=== PATIENT | male | born 1990 | race Hispanic/Latino ===

== ENCOUNTER 2019-06-01 06:48 | Day surgery (SDC) | payer OTHER ==
--- NOTE | 2019-05-31 14:38 | HP ---
HISTORY OF PRESENT ILLNESS: Anirudh is a 28-year-old male patient, who does pest control, has right inguinal hernia for the past 4 years. He wears a belt for. It is becoming increasingly bothersome to him, and he desires repair. Plan is robot mesh repair as an outpatient. He understands risks of infection, bleeding, reoperation, ALLERGIES: NONE. SOCIAL HISTORY: Tobacco, rarely. Alcohol, rarely. PAST SURGICAL HISTORY: Noncontributory. PAST MEDICAL HISTORY: Noncontributory. REVIEW OF SYSTEMS: Noncontributory. PHYSICAL EXAMINATION: VITAL SIGNS: pounds, 61 inches, . HEAD, EYES, EARS, NOSE, AND THROAT: Unremarkable. LUNGS: Clear to auscultation. CARDIAC: Regular rate and rhythm without murmur or gallop. ABDOMEN: Soft and nontender. Right inguinal hernia on standing. Testicles normal. Left groin without evident hernia. EXTREMITIES: Unremarkable. ASSESSMENT AND PLAN: Symptomatic right inguinal hernia. PLAN: Robot mesh repair as outpatient. He understands risks and benefits and consents. Job ID: [id number]
[2019-05-31 16:10] VITALS: BMI 21.7
[2019-06-01] MEDS ORDERED: Lidocaine 1% w/Epinephrine 1:100K 20 ML VIAL ONE (06:57)
[2019-06-01] MEDS ORDERED: Bupivacaine PF 0.5% 30 ML VIAL ONE (06:57)
[2019-06-01 07:09] LABS: #Basophils 0.1 thou/uL (0.0-0.2); #Eosinphils 0.2 thou/uL (0.0-0.7); #Lymphocytes 2.2 thou/uL (1.20-3.40); #Monocytes 0.6 thou/uL (0.11-0.59); #Neutrophils 3.7 thou/uL (1.40-6.50); %Basophils 1.8 % (0.0-1.0); %Eosinophils 3.4 % (0.0-10.0); %Monocytes 8.1 % (0.0-10.0); %Neutrophils 54.7 % (42.0-75.0); Mean Corpuscular HGB CONC 34.2 g/dL (32.0-36.0); Mean Corpuscular Hemoglobin 30.9 pg (27.0-31.0); Mean Corpuscular Volume 90.3 fL (78.0-98.0); Mean Platelet Volume 7.5 fL (7.4-10.4); Platelet Count 198 thou/uL (130-400); RBC Distribution Width 11.6 % (11.5-14.5); Red Blood Cell (RBC) Count 5.52 mill/uL (4.70-6.10); White Blood Cell (WBC) Count 6.8 thou/uL (4.8-10.8)
[2019-06-01] MEDS ORDERED: Acetaminophen 500 MG TAB ONE (07:11)
[2019-06-01] MEDS ORDERED: Ketorolac Tromethamine 30 MG/ML VIAL ONE (07:11)
[2019-06-01] MEDS ORDERED: Gabapentin 300 MG CAP ONE (07:11)
[2019-06-01] MEDS ORDERED: Fentanyl 100 MCG/2 ML VIAL ONE (07:17)
[2019-06-01] MEDS ORDERED: Lidocaine 2% Jelly 5 ML TUBE ONE (07:17)
[2019-06-01 07:21] LABS: Anion Gap 11 mmol/L (10-20); BUN (Urea Nitrogen) 12 mg/dL (8.9-20.6); Calc. Creatinine Clearance 131 mL/min (70-130); Calcium 9.4 mg/dL (7.8-10.44); Carbon Dioxide 26 mmol/L (22-29); Chloride 106 mmol/L (98-107); Estimated GFR-MDRD Greater than 90; Glucose 94 mg/dL (70-105); Potassium 3.8 mmol/L (3.5-5.1); Sodium 139 mmol/L (136-145)
[2019-06-01] MEDS ORDERED: Midazolam HCl 2 mg/2 ml Vial ONE (07:51)
[2019-06-01] MEDS ORDERED: PROPOFOL 200 MG/20 ML VIAL ONE (10:32)
[2019-06-01] MEDS ORDERED: Dexamethasone 20 MG/5 ML VIAL ONE (10:32)
[2019-06-01] MEDS ORDERED: Glycopyrrolate 0.2 MG/ML 5 ML SYRINGE ONE (10:32)
[2019-06-01] MEDS ORDERED: Rocuronium Bromide 10 MG/ML (10ML VIAL) ONE (10:32)
[2019-06-01] MEDS ORDERED: Ondansetron PF 4 MG/2 ML Vial ONE (10:32)
[2019-06-01] MEDS ORDERED: Lidocaine 1% PF 5 ML VIAL ONE (10:32)
--- NOTE | 2019-06-01 11:11 | OP ---
DATE OF PROCEDURE: 06/01/2019 PREOPERATIVE DIAGNOSIS: Right inguinal hernia. POSTOPERATIVE DIAGNOSIS: Right inguinal hernia. PROCEDURE PERFORMED: Robot laparoscopic 3D Bard Max large repair of indirect right inguinal hernia. ANESTHESIA: General and local with 0.5% Marcaine 30 mL mixed with 1% Xylocaine with epinephrine 20 mL. FINDINGS: Large right inguinal hernia. No left inguinal hernia. DESCRIPTION OF PROCEDURE: The patient was taken to the operating room, where under general anesthesia, Izquierdo catheter was placed at the beginning of the procedure and removed at the end. Abdomen was prepared with ChloraPrep and draped in routine fashion. Local anesthetic was infiltrated in the skin and subcutaneous tissue about the operative site. Left paramedian supraumbilical incision was made. Pneumoperitoneum to 15 mmHg was obtained with a Veress needle, replaced it with an 11 balloon port and laparoscope introduced and bilateral far lateral incision was made above the umbilical level near the anterior axillary lines and 8-mm port was placed. Robot docked and positioned, and right inguinal hernia repair undertaken. Left groin without hernia. Peritoneum dissected free on the right side from the midline laterally to the anterior superior iliac spine. Dissecting the flap of peritoneum down, I visualized the Roger's ligament medially and dissecting out laterally and then dissecting the peritoneum from the cord structures using careful dissection using the robot using cautery for hemostasis. Once adequate pocket had been developed, the 3D Bard Max large mesh was positioned properly and secured to Roger's ligament with 2-0 Vicryl and to the anterior abdominal wall to the right lateral anterior portion using 2-0 Vicryl suture. Once mesh was probably positioned, the peritoneal flap closed with continuous suture of #3-0 V-Loc suture. Good hemostasis and repair appreciated. Pneumoperitoneum was evacuated and all instruments were removed and the anterior rectus fascia to the left to midline above the umbilicus was closed with [id number] suture of 0 Vicryl UR needle. Skin and subcutaneous tissues were approximated with interrupted subdermal 4-0 Monocryl and [place] glue applied. The patient tolerated the procedure well. Job ID: [id number]
== END 2019-06-01 12:45 | disposition home or self-care (01) ==
LOC: SDC 06:48
PROVIDERS: ATTEND Specialist
PROC: 0YU54JZ Supplement Right Inguinal Region with Synthetic Substitute, Percutaneous Endoscopic Approach (ICD-10-PCS; principal; 2019-06-01)
DX: K40.90 Unilateral inguinal hernia, without obstruction or gangrene, not specified as recurrent (principal); Z91.018 Allergy to other foods
CPT/HCPCS: 36415; 80048; 85025; C1781; J0690; J1100; J1885; J2001; J2250; J2405; J2704; J3010; S0020

== ENCOUNTER 2019-07-01 11:45 | Day surgery (SDC) | payer OTHER ==
[2019-06-30 16:25] VITALS: BMI 19.8
--- NOTE | 2019-07-01 07:22 | HP ---
HISTORY OF PRESENT ILLNESS: Anirudh Rinaldi is a 28-year-old male underwent a robot laparoscopic mesh repair right inguinal hernia on 06/01/2019. He did well, followed directions postoperatively. 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 He has had recurrent bulges that he reduces. He missed work yesterday because of this. Initially, he reported and followed up to the office on 06/16/2019 and noted a small bulge that was reducible, that seemed to resolve. We thought it was a fluid collection, but now on exam, he feels a recurrent hernia on standing Valsalva. Plan is to repair that in an open fashion in the next day or next week. He understands risks and benefits, consents. We will plan use of mesh. He will avoid lifting over 25 pounds one week postop and resume activity as tolerated after that. ALLERGIES: MEDICAL, NONE. SOCIAL HISTORY: Tobacco, rarely. Alcohol, rarely. PAST SURGICAL HISTORY: Noncontributory except for the hernia repair as described. PAST MEDICAL HISTORY: Noncontributory. REVIEW OF SYSTEMS: Noncontributory. PHYSICAL EXAMINATION: VITAL SIGNS: 150 pounds and 73 inches. 119/71, 65, and 98.6 degrees. LUNGS: Clear to auscultation. CARDIAC: Regular rate and rhythm without murmur or gallop. ABDOMEN: Soft and nontender. Right groin standing reveals the testicle dilated normal. Left groin without hernia. Right groin hernia on Valsalva, reducible. ASSESSMENT: Recurrent right inguinal hernia, one month after robot mesh repair right inguinal hernia. PLAN: Open right mesh repair as outpatient. He understands risks and benefits, consents. Job ID: [id number]
[~2019-07-01 11:45] MED LIST: EPHEDRINE 25 MG/5 ML SYRINGE ONE; Glycopyrrolate 0.2 MG/ML 5 ML SYRINGE ONE; Lidocaine 1% PF 5 ML VIAL ONE; Ondansetron PF 4 MG/2 ML Vial ONE; PHENYLEPHRINE-NS 100 MCG/ML 10 ML SYRINGE ONE; PROPOFOL 200 MG/20 ML VIAL ONE
[2019-07-01] MEDS ORDERED: Ketorolac Tromethamine 30 MG/ML VIAL ONE (12:54)
[2019-07-01] MEDS ORDERED: Acetaminophen 500 MG TAB ONE (12:54)
[2019-07-01] MEDS ORDERED: Midazolam HCl 2 mg/2 ml Vial ONE (13:51)
[2019-07-01] MEDS ORDERED: Lidocaine 1% w/Epinephrine 1:100K 20 ML VIAL ONE (15:19)
[2019-07-01] MEDS ORDERED: Bupivacaine PF 0.5% 30 ML VIAL ONE (15:19)
[2019-07-01] MEDS ORDERED: Fentanyl 100 MCG/2 ML VIAL ONE (15:21)
--- NOTE | 2019-07-01 23:56 | OP ---
DATE OF PROCEDURE: 07/01/2019 PREOPERATIVE DIAGNOSIS: Recurrent right inguinal hernia after robotic mesh repair of inguinal hernia 4 weeks ago. POSTOPERATIVE DIAGNOSIS: Recurrent right inguinal hernia after robotic mesh repair of inguinal hernia 4 weeks ago. PROCEDURE PERFORMED: Prolene Hernia System mesh repair of recurrent right inguinal hernia. ANESTHESIA: General, local 0.5% Marcaine, 30 mL mixed with 1% Xylocaine with epinephrine 20 mL. DESCRIPTION OF PROCEDURE: The patient was taken to the operating room, where under general anesthesia in supine position, abdomen was prepared with ChloraPrep and draped in routine fashion. Local anesthetic was infiltrated in the skin and subcutaneous tissue about the operative site. Incision was made in the right groin, carried down transversely to the skin and subcutaneous tissue. External oblique was incised in the direction of its fibers to external ring. Cord structures dissected free. Cremasteric fibers were taken down. Hernia sac was identified, dissected free, opened under direct visualization, ligated with 0 Nurolon pursestring suture. Excision of hernia sac performed. The stump of the hernia sac underlay PHS mesh secured with 0 Nurolon suture and underlay placed through the internal ring. [place] portion placed in the floor of the inguinal canal, placed extended portion superiorly. The slit made in the mesh laterally to accommodate the cord structures and a synthetic internal ring fabricated securing the mesh laterally to the cord structures to Poupart ligament with 0 Nurolon suture. Mesh secured to Poupart ligament more inferiorly with 0 Nurolon suture and mesh folded and secured to Roger ligament with 0 Nurolon suture. The mesh had a good line and lay flat. External oblique closed with continuous suture of 3-0 Monocryl, Camper's fascia with 3-0 Monocryl, skin with subdermal 4-0 Monocryl and [place] glue applied after local anesthetic was infiltrated in the space of the inguinal canal, space above and below Camper's fascia and infiltrated skin and subcutaneous tissue. Job ID: [id number]
== END 2019-07-01 19:05 | disposition home or self-care (01) ==
LOC: SDC 11:45
PROVIDERS: ATTEND Specialist
PROC: 0YU54JZ Supplement Right Inguinal Region with Synthetic Substitute, Percutaneous Endoscopic Approach (ICD-10-PCS; principal; 2019-07-01)
DX: K40.91 Unilateral inguinal hernia, without obstruction or gangrene, recurrent (principal); Z91.018 Allergy to other foods
CPT/HCPCS: C1781; J0690; J1885; J2250; J3010; S0020

== ENCOUNTER 2023-04-01 08:09 | Outpatient (CLI) | payer BC ==
[2023-04-01 10:19] LABS: #Eosinphils 0.2 10x3/uL (0.0-0.5); #Monocytes 0.4 10x3/uL (0.0-1.1); #Neutrophils 3.8 10x3/uL (1.5-8.4); %Basophils 0.5 % (0.0-2.0); %Eosinophils 2.6 % (0.0-6.0); %Neutrophils 62.6 % (40.0-75.0); Hematocrit 47.6 % (38.8-50.0); Hemoglobin 15.9 g/dL (13.5-17.5); Mean Corpuscular HGB CONC 33.4 g/dL (32.0-36.0); Mean Corpuscular Hemoglobin 29.6 pg (27.0-33.0); Mean Corpuscular Volume 88.6 fl (81.2-95.1); Mean Platelet Volume 10.3 fl (7.4-10.4); Platelet Count 223 10x3/uL (150-450); RBC Distribution Width 12.9 % (11.5-14.5); Red Blood Cell (RBC) Count 5.37 10x6/uL (4.32-5.72)
[2023-04-01 10:29] LABS: ALT (SGPT) 12 U/L (8-55); AST (SGOT) 15 U/L (5-34); Albumin 4.3 g/dL (3.5-5.0); Alkaline Phosphatase 46 U/L (40-110); Anion Gap 14 mmol/L (10-20); BUN (Urea Nitrogen) 12 mg/dL (8.9-20.6); Bilirubin, Total 0.9 mg/dL (0.2-1.2); Calc. Creatinine Clearance 0 mL/min (70-130); Calcium 9.5 mg/dL (7.8-10.44); Carbon Dioxide 26 mmol/L (22-29); Chloride 103 mmol/L (98-107); Estimated GFR 105; Globulin 2.5 g/dL (2.4-3.5); Glucose 86 mg/dL (70-105); Potassium 4.3 mmol/L (3.5-5.1); Protein, Total 6.8 g/dL (6.0-8.3); Sodium 139 mmol/L (136-145)
== END 2023-04-01 08:10 | disposition home or self-care (01) ==
LOC: LABBT 08:09
PROVIDERS: ATTEND Surgery
DX: Z01.812 Encounter for preprocedural laboratory examination (principal); R59.1 Generalized enlarged lymph nodes
CPT/HCPCS: 80053; 85025

== ENCOUNTER 2023-04-03 11:33 | Day surgery (SDC) | payer BC ==
[2023-04-01 08:38] VITALS: BMI 22.1
[2023-04-03] MEDS ORDERED: CEFAZOLIN 2 GM VIAL ONE (11:51)
[2023-04-03] MEDS ORDERED: Lidocaine 1% MPF 2 ML VIAL ONE (11:51)
[2023-04-03] MEDS ORDERED: Sodium Chloride 0.9% 100 ML ONE (11:51)
[2023-04-03] MEDS ORDERED: EPINEPHrine 1 MG/ML VIAL ONE (14:01)
[2023-04-03] MEDS ORDERED: Bupivacaine PF 0.5% 30 ML VIAL ONE (14:02)
[2023-04-03] MEDS ORDERED: Ondansetron PF 4 MG/2 ML Vial ONE ×2 (14:03→14:25)
[2023-04-03] MEDS ORDERED: fentaNYL PF 100 MCG/2 ML SYRINGE ONE (14:03)
[2023-04-03] MEDS ORDERED: PROPOFOL 20 ML ONE (14:03)
[2023-04-03] MEDS ORDERED: Lidocaine 1% PF 5 ML VIAL ONE ×2 (14:03→14:25)
[2023-04-03] MEDS ORDERED: Dexamethasone 4 mg/ml Vial ONE (14:03)
[2023-04-03] MEDS ORDERED: Midazolam HCl 2 mg/2 ml Vial ONE (14:17)
[2023-04-03] MEDS ORDERED: PROPOFOL 200 MG/20 ML VIAL ONE (14:25)
[2023-04-03] MEDS ORDERED: ePHEDrine Sulfate 50 MG/10 ML VIAL ONE ×2 (14:25→14:42)
[2023-04-03] MEDS ORDERED: Dexamethasone 20 MG/5 ML VIAL ONE (14:25)
[2023-04-03] MEDS ORDERED: Dexmedetomidine 200 MCG/2 ML VIAL ONE (14:39)
[2023-04-03] MEDS ORDERED: HYDROcodone/Acetaminophen 5/325 mg Tablet ONE (17:02)
== END 2023-04-03 17:07 | disposition home or self-care (01) ==
LOC: SDC 11:33
PROVIDERS: ATTEND Surgery
PROC: 07BH0ZX Excision of Right Inguinal Lymphatic, Open Approach, Diagnostic (ICD-10-PCS; principal; 2023-04-03)
DX: I88.8 Other nonspecific lymphadenitis (principal); F32.A Depression, unspecified; F17.210 Nicotine dependence, cigarettes, uncomplicated; F10.90 Alcohol use, unspecified, uncomplicated; Z91.018 Allergy to other foods
CPT/HCPCS: 87070; 87205; 88184; 88307; 88312; 88341; 88342; J0171; J1100; J2250; J2405; J2704; J3490; S0020